=== PATIENT | female | born 1960 | race Caucasian/White ===

== ENCOUNTER → 2018-09-13 | Outpatient (CLI) | payer OTHER | END | disposition home or self-care (01) | LOC: CFH 11:50 | PROVIDERS: ATTEND Nurse Practitioner | DX: Z12.31 Encounter for screening mammogram for malignant neoplasm of breast (principal) | CPT/HCPCS: 77067 ==

== ENCOUNTER → 2018-11-21 | Outpatient (CLI) | payer OTHER | END | disposition home or self-care (01) | LOC: CFH 07:09 | PROVIDERS: ATTEND Nurse Practitioner Primary Care | DX: M47.26 Other spondylosis with radiculopathy, lumbar region (principal); M51.16 Intervertebral disc disorders with radiculopathy, lumbar region; M47.897 Other spondylosis, lumbosacral region; M48.07 Spinal stenosis, lumbosacral region; M41.86 Other forms of scoliosis, lumbar region; M43.26 Fusion of spine, lumbar region | CPT/HCPCS: 72100; 72148 ==

== ENCOUNTER 2019-10-01 12:41 | Outpatient (CLI) | payer OTHER | END 2019-10-01 23:59 | disposition home or self-care (01) | LOC: CFH 12:41 | PROVIDERS: ATTEND Nurse Practitioner | DX: Z12.31 Encounter for screening mammogram for malignant neoplasm of breast (principal); N64.89 Other specified disorders of breast; R22.1 Localized swelling, mass and lump, neck | CPT/HCPCS: 77063; 77067 ==

== ENCOUNTER → 2019-12-16 | Outpatient (CLI) | payer OTHER | END | disposition home or self-care (01) | LOC: CFH 08:43 | PROVIDERS: ATTEND Nurse Practitioner | DX: N64.4 Mastodynia (principal) | CPT/HCPCS: 77065; G0279 ==

== ENCOUNTER 2020-09-15 10:53 | Inpatient (IN) | payer OTHER ==
[~2020-09-15] VITALS: Ht 162.6 cm; Wt 100.3 kg
[2020-09-15] MEDS ORDERED: GABA-827 PO (11:12)
[2020-09-15] MEDS ORDERED: ACYC-114 PO (11:12)
[2020-09-15] MEDS ORDERED: METO25TA35 PO (11:12)
--- NOTE | 2020-09-15 11:13 | NUR ---
C/O LEFT FLANK PAIN AND LUQ ABD PAIN X4 DAYS. URINE SAMPLE COLLECTED. PLACED ON VITALS MONITORS. CALL LIGHT WITHIN REACH.
[2020-09-15] MEDS ORDERED: ONDANSETRON 2MG/ML, 2ML ONE ×2 (11:22→15:24)
[2020-09-15] MEDS ORDERED: KETOROLAC 30 MG/1 ML ONE (11:23)
[2020-09-15] MEDS ORDERED: SODIUM CHLORIDE FLUSH 10ML SYR IVF ONE (11:30)
[2020-09-15] MEDS ORDERED: KETOROLAC 30 MG/1 ML IVPush ONE (11:30)
[2020-09-15] MEDS ORDERED: ONDANSETRON 2MG/ML, 2ML IVPush ONE (11:30)
[2020-09-15] MEDS ORDERED: MORPHINE SULFATE 4 MG/ML, 1ML IVPush PRN (11:30)
[2020-09-15 11:31] LABS: MICROSCOPIC INDICATED
--- NOTE | 2020-09-15 11:40 | NUR ---
PT TRANSPORTED TO CT.
[2020-09-15 12:13] LABS: BASOPHILS % (AUTO) 1 % (0-1); EOSINOPHILS % (AUTO) 2 % (1-7); LYMPHOCYTES % (AUTO) 20 % (22-44); MEAN CORPUSCULAR HEMOGLOBIN 27.9 pg (27.0-34.8); MEAN CORPUSCULAR HGB CONC 32.9 g/dL (32.4-35.8); MEAN PLATELET VOLUME 8.4 fL (7.4-10.4); MONOCYTES % (AUTO) 6 % (2-9); NEUTROPHILS % (AUTO) 72 % (42-75); PLATELET COUNT 214 x10^3/uL (130-400); RED BLOOD COUNT 6.18 x10^6/uL (3.82-5.3); RED CELL DISTRIBUTION WIDTH 14.2 % (9.6-15.2)
[2020-09-15] MEDS ORDERED: HYDROmorphone 2 MG/ML, 1ML ONE (12:14)
[2020-09-15 12:15] LABS: MD NO
[2020-09-15] MEDS: HYDROmorphone 2 MG/ML, 1ML IVPush PRN ×2 (12:19→14:18)
[2020-09-15 12:25] LABS: ALBUMIN 4.1 g/dL (3.4-5.0); ANION GAP 4 mmol/L (5-15); CALCIUM 9.5 mg/dL (8.5-10.1); CHLORIDE 109 mmol/L (98-107); CREATININE 0.95 mg/dL (0.55-1.02)
[2020-09-15] MEDS ORDERED: SODIUM CHLORIDE FLUSH 10ML SYR IVF PRN (13:30)
[2020-09-15] MEDS ORDERED: HYDROmorphone 1 MG/ML, 1ML INJ IVPush PRN ×2 (13:30→15:30)
[2020-09-15] MEDS ORDERED: SODIUM CHLORIDE 0.9% 1,000 ML IV ONE (13:30)
--- NOTE | 2020-09-15 14:21 | NUR ---
REPORT GIVEN TO FRANCISCO ROBLEDO IN [facility]
[2020-09-15] MEDS ORDERED: CHLORHEXIDINE 15 ML UDC ONE ×2 (14:34→16:08)
[2020-09-15] MEDS ORDERED: ONDANSETRON 2MG/ML, 2ML IVPush PRN (15:00)
[2020-09-15] MEDS ORDERED: hydrALAzine 20 MG/ML, 1ML IVPush PRN (15:00)
[2020-09-15] MEDS ORDERED: LABETALOL 5MG/ML, 20ML IVPush PRN (15:00)
[2020-09-15] MEDS ORDERED: morphine SULFATE 10 MG/ML, 1ML IVPush PRN (15:00)
[2020-09-15] MEDS ORDERED: ACETAMINOPHEN 325 MG TABLET PO PRN ×2 (15:00→15:30)
[2020-09-15] MEDS ORDERED: PROMETHAZINE 25 MG/ML, 1ML IM PRN (15:00)
[2020-09-15] MEDS: SODIUM CHLORIDE 0.9% 1,000 ML IV SCH (15:00)
[2020-09-15] MEDS ORDERED: ROCURONIUM 10MG/ML,5ML ONE (15:24)
[2020-09-15] MEDS ORDERED: FENTANYL PF 250 MCG/5ML ONE (15:24)
[2020-09-15] MEDS ORDERED: METOCLOPRAMIDE 5 MG/ML, 2ML ONE (15:24)
[2020-09-15] MEDS ORDERED: GLYCOPYRROLATE 0.2MG/1ML, 5ML ONE (15:24)
[2020-09-15] MEDS ORDERED: PROPOFOL 10 MG/ML, 20ML ONE (15:24)
[2020-09-15] MEDS ORDERED: DEXAMETHASONE 4 MG/ML, 1ML ONE (15:24)
[2020-09-15] MEDS ORDERED: MIDAZOLAM 1 MG/ML, 2ML ONE (15:24)
[2020-09-15] MEDS ORDERED: HALOPERIDOL 5 MG/ML IV PRN (15:30)
[2020-09-15] MEDS ORDERED: HYDROcodone/APAP 7.5-325MG/15ML UDC PO PRN (15:30)
[2020-09-15] MEDS ORDERED: METHOCARBAMOL 1,000 MG in DEXTROSE 5% 100 ML IV PRN (15:30)
[2020-09-15] MEDS ORDERED: MEPERIDINE/PF 25MG/0.5ML IVPush PRN (15:30)
[2020-09-15] MEDS ORDERED: EPHEDRINE 50 MG/ML, 1ML IM PRN (15:30)
[2020-09-15] MEDS ORDERED: FENTANYL PF 100 MCG/2ML IV PRN (15:30)
[2020-09-15] MEDS ORDERED: MIDAZOLAM 1 MG/ML, 2ML IV PRN (15:30)
[2020-09-15] MEDS ORDERED: DIAZEPAM 5 MG/ML, 2ML IVPush PRN (15:30)
[2020-09-15] MEDS ORDERED: LORazepam 2 MG/ML, 1ML IVPush PRN (15:30)
[2020-09-15] MEDS ORDERED: OXYcodone 5 MG/5 ML ORAL.SOL UDC PO PRN (15:30)
[2020-09-15] MEDS ORDERED: METOCLOPRAMIDE 5 MG/ML, 2ML IVPush PRN (15:30)
[2020-09-15] MEDS ORDERED: EPHEDRINE 50 MG/ML, 1ML IVPush PRN (15:30)
[2020-09-15] MEDS ORDERED: LABETALOL 5MG/ML, 20ML IV PRN (15:30)
[2020-09-15] MEDS ORDERED: hydrALAzine 20 MG/ML, 1ML IV PRN (15:30)
[2020-09-15] MEDS ORDERED: DIPHENHYDRAMINE 50 MG/ML, 1ML IVPush PRN (15:30)
[2020-09-15] MEDS ORDERED: ALBUTEROL/IPRATROPIUM 2.5MG/0.5MG, 3 ML NPPB PRN (15:30)
[2020-09-15] MEDS ORDERED: KETOROLAC 30 MG/1 ML IVPush PRN (15:30)
[2020-09-15] MEDS ORDERED: CEFAZOLIN 1,000 MG ONE (15:58)
[2020-09-15] MEDS ORDERED: OXYcodone 5 MG/5 ML ORAL.SOL UDC ONE (17:16)
[2020-09-15] MEDS ORDERED: HYDROmorphone 1 MG/ML, 1ML INJ ONE (17:16)
[2020-09-15] MEDS ORDERED: MAGNESIUM SULFATE 1 GM/2 ML ONE (17:17)
[2020-09-15 18:20] VITALS: BP 122/80
[2020-09-15] MEDS ORDERED: CEFTRIAXONE PMX 1GM/50ML 50 ML IV SCH (19:00)
[2020-09-15] MEDS ORDERED: ONDANSETRON 2MG/ML, 2ML IV PRN (19:00)
[2020-09-15] MEDS ORDERED: HYDROmorphone 1 MG/ML, 1ML INJ IV PRN (19:00)
[2020-09-15] MEDS: KETOROLAC 30 MG/1 ML IV PRN (19:41)
[2020-09-15] MEDS: LACTATED RINGERS 1,000 ML IV SCH (19:41)
[2020-09-15] MEDS ORDERED: LOSA50TA14 PO (21:35)
[2020-09-15] MEDS ORDERED: METO-95 PO (21:35)
[2020-09-15] MEDS ORDERED: FAMC500T4 PO (21:41)
[2020-09-15] MEDS ORDERED: GABA300C PO ×2 (23:18)
[2020-09-16 00:25] VITALS: BP 113/73
[2020-09-16] MEDS: SODIUM CHLORIDE 0.9% 1,000 ML IV SCH (01:00)
[2020-09-16] MEDS: KETOROLAC 30 MG/1 ML IV PRN (01:43)
[2020-09-16] MEDS: OXYcodone/APAP 5/325MG TABLET PO PRN ×2 (04:10→12:14)
[2020-09-16 04:13] VITALS: BP 120/72
[2020-09-16 04:57] LABS: BASOPHILS % (AUTO) 0 % (0-1); EOSINOPHILS % (AUTO) 0 % (1-7); LYMPHOCYTES % (AUTO) 12 % (22-44); MEAN CORPUSCULAR HEMOGLOBIN 27.9 pg (27.0-34.8); MEAN PLATELET VOLUME 8.4 fL (7.4-10.4); MONOCYTES % (AUTO) 3 % (2-9); NEUTROPHILS % (AUTO) 85 % (42-75); PLATELET COUNT 195 x10^3/uL (130-400); RED BLOOD COUNT 5.22 x10^6/uL (3.82-5.3)
[2020-09-16 05:09] LABS: ALBUMIN 3.3 g/dL (3.4-5.0); ANION GAP 7 mmol/L (5-15); CALCIUM 8.9 mg/dL (8.5-10.1); CHLORIDE 109 mmol/L (98-107)
[2020-09-16 05:13] LABS: ALANINE AMINOTRANSFERASE 29 U/L (12-78); ALKALINE PHOSPHATASE 92 U/L (45-117); BILIRUBIN,TOTAL 0.5 mg/dL (0.2-1.0); CREATININE 0.79 mg/dL (0.55-1.02); TOTAL PROTEIN 6.7 g/dL (6.4-8.2)
[2020-09-16 05:48] LABS: MD SCAN
[2020-09-16] MEDS: LACTATED RINGERS 1,000 ML IV SCH (06:05)
[2020-09-16 07:16] VITALS: BP 111/55
[2020-09-16] MEDS ORDERED: CEFDINIR 300 MG CAPSULE PO SCH (09:00)
[2020-09-16] MEDS ORDERED: TAMSULOSIN 0.4 MG CAP.ER.24H PO SCH (09:00)
[2020-09-16] MEDS ORDERED: METOPROLOL TARTRATE 25 MG TAB PO SCH (09:00)
[2020-09-16] MEDS ORDERED: CEFD300C37 PO (11:21)
[2020-09-16] MEDS ORDERED: OXYC-302 PO (11:48)
== END 2020-09-16 12:56 | disposition home or self-care (01) | DRG 661 ==
LOC: ED 11:23 → EDIP 13:10 → 3WST 18:15 → DCLOUNGE 09-16 12:48
PROVIDERS: ADMIT Family Medicine; ATTEND Family Medicine
PROC: 0TC78ZZ Extirpation of Matter from Left Ureter, Via Natural or Artificial Opening Endoscopic (ICD-10-PCS; 2020-09-15)
PROC: 0T778DZ Dilation of Left Ureter with Intraluminal Device, Via Natural or Artificial Opening Endoscopic (ICD-10-PCS; principal; 2020-09-15 15:30)
DX: N13.6 Pyonephrosis (principal); D75.1 Secondary polycythemia; E66.9 Obesity, unspecified; I10 Essential (primary) hypertension; G89.29 Other chronic pain; M54.9 Dorsalgia, unspecified; Z20.828 Contact with and (suspected) exposure to other viral communicable diseases; Z71.3 Dietary counseling and surveillance; Z68.38 Body mass index [BMI] 38.0-38.9, adult
CPT/HCPCS: 36415; 74018; 74176; 80048; 80053; 81001; 82040; 85025; 87086; 87635; G0378; J0690; J0696; J1100; J1170; J1885; J2250; J2405; J2704; J3010; J3475; C2617; J2765; J7030; J7120